=== PATIENT | male | born 1985 | race Caucasian/White ===

== ENCOUNTER → 2021-06-23 19:22 | Outpatient (CLI) | payer OTHER, SELFPAY ==
--- NOTE | 2021-06-23 19:24 | DI.MRI.S_ITS ---
PROCEDURE: MR SHOULDER RT WO CON INDICATIONS: Pain in unspecified shoulder TECHNIQUE: Noncontrast oblique coronal T2 fast spin echo with fat saturation, oblique sagittal T1 spin echo and T2 fast spin echo with fat saturation, axial T1 spin echo and T2 fast spin echo with fat saturation through the shoulder. COMPARISON: None. FINDINGS: Rotator cuff: Supraspinatus and infraspinatus tendinopathy with low-grade partial thickness bursal sided tear, less than 50% of tendon thickness. Teres minor tendon appears intact. Subscapularis tendinopathy and thickening with minimal bursal surface fraying. No definite atrophy of the rotator cuff muscles although there is mild fatty infiltration of the supraspinatus and infraspinatus. Bones and bursae: No bone marrow contusions or fractures. Moderate acromioclavicular joint degeneration. Acromion demonstrates conventional anatomy, without an os acromiale. Moderate subacromial-subdeltoid bursitis. Capsule and soft tissues: Labrum: Mild blunting of the posterior labrum, without definite intrasubstance fluid signal intensity. There are early adjacent glenoid marrow signal changes for example image 12/7. There is no definite associated chondral loss. Glenohumeral ligaments: Inferior and superior glenohumeral ligaments are intact. Biceps tendon: Long head of the biceps tendon intact. Rotator interval: Normal signal intensity. Coracohumeral ligament: Intact. IMPRESSION: Low-grade partial-thickness rotator cuff tear as above. Moderate subacromial-subdeltoid bursitis Chronic posterior labral tear versus greater than expected degeneration. Mild adjacent glenoid marrow signal degenerative changes. No definite associated chondral loss Dictated by: Augustine Middleton M.D. on 06/24/2021 at 10:12 Approved by: Augustine Middleton M.D. on 06/24/2021 at 10:24
== END ==
DX: M25.511 Pain in right shoulder (principal); M75.111 Incomplete rotator cuff tear or rupture of right shoulder, not specified as traumatic; M75.51 Bursitis of right shoulder
CPT/HCPCS: 73221